=== PATIENT | male | born 1950 | race Caucasian/White ===

== ENCOUNTER 2017-04-29 12:57 | Emergency (ER) | payer MEDICARE, OTHER ==
[2017-04-29 13:11] VITALS: O2SAT 97
--- NOTE | 2017-04-29 13:32 | ERPHSYRPT ---
- History of Present Illness Time Seen by Provider: 04/29/17 13:15 Exam Limitations: clinical condition Patient Subjective Stated Complaint: PT REPORTS SWELLING ET DISCOLORATION TO LEFT THUMB AREA-DENIES PAIN-DENIES INJURY-DENIES NUMBNESS OR TINLGING Triage Nursing Assessment: PT PINK WARM ET [id number] NOTED-PURPLE DISCOLORATION NOTED-RADIAL PULSE REGULAR Physician History: PATIENT WITH A HISTORY OF CORONARY ARTERY DISEASE, AND ARTHRITIS WHILE LIFTING OUT IN HIS YARD YESTERDAY NOTICE PAIN DISCOMFORT BELOW HIS LEF THUMB AND TODAY AT NOON NOTICED SWELLING WITH BRUISING OVER LEFT HAND AROUND THE BASE OF HIS LEFT THUMB. HE DENIES TRAUMA OR INJURY. DENIES BLEEDING FROM HIS GINGIVA OR RECTAL BLEEDING. Occurred: this morning Method of Injury: unknown Quality: other (DENIES PAIN) Severity of Pain-Max: none Severity of Pain-Current: none Extremities Pain Location: hand: left, thumb: left Modifying Factors: Improves With: nothing Associated Symptoms: none Allergies/Adverse Reactions: No Known Drug Allergies Allergy (Unverified 04/29/17 13:11) Home Medications: Aspirin 81 gm Chew [Baby Aspirin 81 mg Chew] 81 mg PO DAILY 04/29/17 [ History] Celecoxib 100 mg [celeBREX 100 MG] 200 mg PO DAILY 04/29/17 [History] Clopidogrel Bisulfate 75 mg [PLAVIX 75 MG Tablet] 75 mg PO DAILY 04/29/17 [History] Losartan Potassium [Cozaar] 25 mg PO DAILY 04/29/17 [History] Meloxicam 7.5 mg PO DAILY 04/29/17 [History] Metoprolol Tartrate 50 mg [Lopressor 50 MG] 50 mg PO DAILY 04/29/17 [ History] Pantoprazole Sodium [Protonix] 40 mg PO DAILY 04/29/17 [History] Hx Tetanus, Diphtheria Vaccination/Date Given: Yes Hx Influenza Vaccination/Date Given: Yes (2016) Hx Pneumococcal Vaccination/Date Given: Yes Immunizations Up to Date: No - Review of Systems Musculoskeletal: Other (BRUISING AND SWELLING AROUND LEFT BASE OF THUMB) Neurological: No Symptoms - Past Medical History Pertinent Past Medical History: Yes Cardiac History: Myocardial Infarction ([place]) Other Medical History: COLON CANCER - Past Surgical History Past Surgical History: Yes Cardiac: Cardiac Stent Gastrointestinal: Colon Resection - Social History Smoking Status: Never smoker Exposure to second hand smoke: No Drug Use: none Patient Lives Alone: No - Nursing Vital Signs Nursing Vital Signs: Initial Vital Signs Temperature 98.0 F 04/29/17 13:08 Pulse Rate 78 04/29/17 13:08 Respiratory Rate 20 04/29/17 13:08 Blood Pressure 128/81 04/29/17 13:08 O2 Sat by Pulse Oximetry 97 04/29/17 13:08 Pain Scale Pain Intensity 0 - Physical Exam General Appearance: no apparent distress Wrist Exam: ecchymosis (OVER THE LEFT HAND THENAR EMINENCE AND DORSUM MID 1ST TO 2ND METACARPALS AND WEB SPACE ), swelling (THERE FULL RANGE OF MOTION ALL DIGITS) SpO2 Interpretation: normal SpO2: 97 Oxygen Delivery: Room Air - Radiology Exams Left Hand X-ray Interpretation: Interpreted by me (SOFT TISSUE SWELLING WITHOUT EVIDENCE OF FRACTURE OR DISLOCATION) Ordered Tests: Active Orders 24 hr Category Date Time Status HAND (MINIMUM 3 VIEWS) Stat Exams 04/29/17 13:29 Taken CBC W DIFF Stat Lab 04/29/17 13:45 Completed PROTIME WITH INR Stat Lab 04/29/17 13:45 Completed Lab/Rad Data: Laboratory Result Diagrams 04/29/17 13:45 Laboratory Results 04/29/17 04/29/17 Range/Units 13:45 13:45 WBC 5.5 (4.0-10.5) K/mm3 RBC 5.56 (4.1-5.6) M/mm3 Hgb 14.7 (12.5-18.0) gm/dl Hct 43.9 (42-50) % MCV 79.0 (78-100) fl MCH 26.4 (26-32) pg MCHC 33.5 (32-36) g/dl RDW 15.0 H (11.5-14.0) % Plt Count 244 (150-450) K/mm3 MPV 9.4 (6-9.5) fl Gran % 59.1 (36.0-66.0) % Lymphocytes % 25.0 (24.0-44.0) % Monocytes % 9.4 (0.0-12.0) % Eosinophils % 6.0 H (0.00-5.0) % Basophils % 0.5 (0.0-0.4) % Basophils # 0.03 (0-0.4) INR 1.00 (0.8-3.0) - Progress Progress Note: 04/29/17 14:40 INR 1.0, HGB-14.7 HCT 43.9 Counseled pt/family regarding: diagnosis, need for follow-up, rad results - Departure Time of Disposition: 15:00 Departure Disposition: Home Clinical Impression: LEFT HAND SWELLING/ECCHYMOSIS Condition: Stable Critical Care Time: No Referrals: DEBORAH TINEO MD [Primary Care Provider] - Additional Instructions: APPLY ICE ABOVE AND BELOW LEFT HAND SWELLING EVERY 4 HOURS, DURATION OF 30 MINUTES FOR 48 HOURS. CONSULT YOUR PRIMARY CARE PHYSICIAN FOR EVALUATION IN 1 WEEK.
[2017-04-29 14:01] LABS: BASOPHIL % 0.5 % (0.0-0.4); Granulocytes % 59.1 % (36.0-66.0); Mean Corpuscular Hemoglobin 26.4 pg (26-32); Mean Platelet Volume 9.4 fl (6-9.5); Monocytes % 9.4 % (0.0-12.0); Platelet Count 244 K/mm3 (150-450); Red Blood Count 5.56 M/mm3 (4.1-5.6); White Blood Count 5.5 K/mm3 (4.0-10.5)
[2017-04-29 14:04] LABS: PROTIME 11.1 SECONDS (8.83-12.87)
[2017-04-29 14:29] VITALS: BP 130/79; PULSE 80
--- NOTE | 2017-04-29 20:56 | XRAY ---
Indication: Bruising and swelling. No known injury. Comparison: December 21, 2015. 3 views of the left hand unchanged again demonstrates ring at the base of the fourth finger and mild degenerative changes of the first metacarpal multangular articulation. No new/acute bony, articular, or soft tissue abnormalities.
== END 2017-04-29 15:10 | disposition home or self-care (01) ==
LOC: ED 12:57
DX: M25.442 Effusion, left hand (principal); R58 Hemorrhage, not elsewhere classified; I25.10 Atherosclerotic heart disease of native coronary artery without angina pectoris; I25.2 Old myocardial infarction; Z79.899 Other long term (current) drug therapy; X50.0XXA Overexertion from strenuous movement or load, initial encounter
CPT/HCPCS: 36415; 73130; 85025; 85610; 99282; 99284

== ENCOUNTER 2019-11-21 15:11 | Emergency (ER) | payer MEDICARE, OTHER ==
[2019-11-21] MEDS ORDERED: MOTRIN 600 MG PO ONE (15:32)
[2019-11-21] MEDS ORDERED: Norco 10/325 MG Tablet PO ONE (15:33)
[2019-11-21] MEDS ORDERED: Norco 10/325 MG Tablet ONE (15:36)
[2019-11-21] MEDS ORDERED: MOTRIN 600 MG ONE (15:36)
--- NOTE | 2019-11-21 15:38 | ERPHSYRPT ---
- History of Present Illness Time Seen by Provider: 11/21/19 15:29 Source: patient Exam Limitations: no limitations Patient Subjective Stated Complaint: Laceration Triage Nursing Assessment: Patient ambulated back to ED and transferred self to bed. Patient A+O X3. Patient's skin pink, warm and dry. Patient complains of laceration to left hand, 2nd digit after using a wench on his side by side to pull a mower out of a ditch and pushed the wrong button causing the wench to smash his finger. Skin flap noted to left hand 2nd digit. Patient complains of constant burning pain 02/05. Physician History: Patient is here with laceration to his left index finger. Just prior to arrival patient was working on his lawnmower. He states that he put his finger underneath a lawnmower and got cut by the blades. His last tetanus shot was 2017. He does have some tenderness. Appears to be a partial amputation of the distal DIP on physical exam. 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 Timing: after injury Modifying factors/associated signs and symptoms: none tried Timing/Duration: today Severity: moderate Allergies/Adverse Reactions: No Known Drug Allergies Allergy (Verified 11/21/19 15:15) Home Medications: Aspirin 81 gm Chew [Baby Aspirin 81 mg Chew] 81 mg PO DAILY 04/29/17 [ History] Metoprolol Tartrate 50 mg [Lopressor 50 MG] 50 mg PO DAILY 04/29/17 [ History] Pantoprazole Sodium [Protonix] 40 mg PO DAILY 04/29/17 [History] Ezetimibe 10 mg [Zetia 10 MG] 1 tab PO DAILY 11/21/19 [History] Pitavastatin Calcium [Livalo] 1 tab PO DAILY 11/21/19 [History] Hx Tetanus, Diphtheria Vaccination/Date Given: Yes (07/08/18) Hx Influenza Vaccination/Date Given: Yes (05/23/2019) Hx Pneumococcal Vaccination/Date Given: Yes (10/15/2019) Immunizations Up to Date: Yes Travel Risk - International Travel Have you traveled outside of the country in past 3 weeks: No Have you or anyone close to you been diagnosed with or: No Do your reside in a community with a known COVID-19 case?: Yes If Yes where:: [place] - Coronavirus Screening Has patient experienced Coronavirus symptoms: No - Review of Systems Constitutional: No Fever, No Chills Eyes: No Symptoms Ears, Nose, & Throat: No Symptoms Respiratory: No Cough, No Dyspnea Cardiac: No Chest Pain, No Edema, No Syncope Abdominal/Gastrointestinal: No Abdominal Pain, No Nausea, No Vomiting, No Diarrhea Genitourinary Symptoms: No Dysuria Musculoskeletal: Other (left index finger injury), No Back Pain, No Neck Pain Skin: No Rash Neurological: No Dizziness, No Focal Weakness, No Sensory Changes Psychological: No Symptoms Endocrine: No Symptoms All Other Systems: Reviewed and Negative - Past Medical History Pertinent Past Medical History: Yes Neurological History: No Pertinent History ENT History: No Pertinent History Cardiac History: High Cholesterol, Hypertension, Myocardial Infarction ([place]) Respiratory History: No Pertinent History Endocrine Medical History: No Pertinent History Musculoskeletal History: No Pertinent History GI Medical History: No Pertinent History History: No Pertinent History Psycho-Social History: No Pertinent History Male Reproductive Disorders: No Pertinent History Other Medical History: COLON CANCER - Past Surgical History Past Surgical History: Yes Neuro Surgical History: No Pertinent History Cardiac: Cardiac Stent Respiratory: No Pertinent History Gastrointestinal: Colon Resection Genitourinary: No Pertinent History Musculoskeletal: No Pertinent History Male Surgical History: No Pertinent History - Social History Smoking Status: Never smoker Exposure to second hand smoke: No Drug Use: none Patient Lives Alone: No - Nursing Vital Signs Nursing Vital Signs: Initial Vital Signs Temperature 98.6 F 11/21/19 15:20 Pulse Rate 69 11/21/19 15:20 Respiratory Rate 18 11/21/19 15:20 Blood Pressure 136/90 11/21/19 15:20 O2 Sat by Pulse Oximetry 98 11/21/19 15:20 Pain Scale Pain Intensity 0 - Physical Exam General Appearance: no apparent distress, alert Eye Exam: PERRL/EOMI, eyes nml inspection Ears, Nose, Throat Exam: normal ENT inspection, TMs normal, pharynx normal, moist mucous membranes Neck Exam: normal inspection, non-tender, supple, full range of motion Respiratory Exam: normal breath sounds, lungs clear, No respiratory distress Cardiovascular Exam: regular rate/rhythm, normal heart sounds, normal peripheral pulses Gastrointestinal/Abdomen Exam: soft, normal bowel sounds, No tenderness, No mass Back Exam: normal inspection, normal range of motion, No CVA tenderness, No vertebral tenderness Extremity Exam: normal inspection, normal range of motion, pelvis stable Neurologic Exam: alert, oriented x 3, cooperative, normal mood/affect, nml cerebellar function, nml station & gait, sensation nml, No motor deficits Skin Exam: normal color, warm, dry, No rash Lymphatic Exam: No adenopathy SpO2 Interpretation: normal SpO2: 98 Comments: 11/21/19 15:41 Distal left index finger injury. Partial amputation proximal to the nailbed. It is across the DIP. The nail is still attached. No actual damage to the nail bed. Still has some mild capillary reflux. Procedures - Laceration/Wound Repair Left Upper Finger Wound Location: Left Wound Length (cm): 2 Wound's Depth, Shape: linear, contused tissue Wound Explored: clean Irrigated: Yes Hibiclens Prep: Yes Anesthesia: digital block, 1% Lidocaine Wound Repaired With: sutures Suture Size/Type: 4-0 Number of Sutures: 3 Layer Closure?: No Sterile Dressing Applied?: Yes Splint Applied?: Yes Ordered Tests: Active Orders 24 hr Category Date Time Status FINGER(S) Stat Exams 11/21/19 15:40 Completed Medication Summary Discontinued Medications Generic Name Dose Route Start Last Admin Trade Name Freq PRN Reason Stop Dose Admin Hydrocodone Bitart/Acetaminophen 1 tab 11/21/19 15:33 11/21/19 15:38 Winter 10/325 Mg Tablet PO 11/21/19 15:34 1 tab STAT ONE Administration Hydrocodone Bitart/Acetaminophen Confirm 11/21/19 15:36 Winter 10/325 Mg Tablet Administered 11/21/19 15:37 Dose 1 tab .ROUTE .STK-MED ONE Ibuprofen 600 mg 11/21/19 15:32 11/21/19 15:38 Motrin 600 Mg PO 11/21/19 15:33 600 mg STAT ONE Administration Ibuprofen Confirm 11/21/19 15:36 Motrin 600 Mg Administered 11/21/19 15:37 Dose 600 mg .ROUTE .STK-MED ONE - Progress Progress: improved Progress Note: 11/21/19 15:42 Digital block performed. Winter for pain control. The distal finger was loosely attached to the best of my ability to the rest of the finger. There is still a high likelihood that he will lose this finger. As it is almost a complete amputation. Still some minimal blood flow and patient does have sensation to the injury. We will discuss with on-call orthopedic surgery and most likely have patient follow-up soon as possible. 11/21/19 17:03 I did discuss over the phone with on-call orthopedic surgery, Dr. Li. He stated patient could follow-up in 24 to 48 hours. Otherwise, he could call him sooner if there is any emergencies. Patient states his understanding. Patient also has his own orthopedic surgeon. I did attempt to contact Dr. Acacia Morales , his orthopedic surgeon. However, there is no response to the phone call at 5 PM on Sunday night. Counseled pt/family regarding: need for follow-up, rad results - Departure Departure Disposition: Home Clinical Impression: Finger laceration, Fracture of distal phalanx of finger, Fracture of middle phalanx of finger, Open fracture Condition: Stable Critical Care Time: No Referrals: DEBORAH TINEO MD [Primary Care Provider] - Instructions: Finger Fracture (DC) Additional Instructions: Follow up with Dr. Li if you have any issues this weekend, otherwise see him Sunday morning for follow up. [phone] You are welcome to follow up with your own hand surgeon if you would like and can see them in the next 24-48 hours . Return here for new or changing symptoms. Prescriptions: Clindamycin HCl 150 mg [Cleocin 150 mg Capsule] 2 cap PO QID #56 capsule
[2019-11-21 15:45] VITALS: BP 124/78; PULSE 76
[2019-11-21 15:47] VITALS: O2SAT 98
--- NOTE | 2019-11-21 16:12 | XRAY ---
Indication: Crush injury. Comparison: Left hand April 29, 2017. 3 view left 2nd finger demonstrates new mildly displaced/angulated distal phalanx fracture near the base, nondisplaced comminuted middle phalanx fracture, and diffuse soft tissue swelling. Incidental progressive worsening advanced degenerative changes base 1st metacarpal.
== END 2019-11-21 17:09 | disposition home or self-care (01) ==
LOC: ED 15:11
DX: S61.211A Laceration without foreign body of left index finger without damage to nail, initial encounter (principal); R20.8 Other disturbances of skin sensation; S62.633B Displaced fracture of distal phalanx of left middle finger, initial encounter for open fracture; W23.1XXA Caught, crushed, jammed, or pinched between stationary objects, initial encounter; Y93.89 Activity, other specified; Y92.89 Other specified places as the place of occurrence of the external cause; I25.2 Old myocardial infarction; Z85.038 Personal history of other malignant neoplasm of large intestine; Z90.49 Acquired absence of other specified parts of digestive tract; I10 Essential (primary) hypertension; E78.00 Pure hypercholesterolemia, unspecified; Z79.899 Other long term (current) drug therapy
CPT/HCPCS: 73140; 99283; A9270-GY

== ENCOUNTER 2021-07-30 11:02 | Emergency (ER) | payer MEDICARE, OTHER ==
[2021-07-30 11:12] VITALS: BP 140/72; PULSE 69; O2SAT 99
--- NOTE | 2021-07-30 12:11 | ERPHSYRPT ---
- History of Present Illness Time Seen by Provider: 07/30/21 11:51 Source: patient Exam Limitations: no limitations Patient Subjective Stated Complaint: Pt dropped a metal container on his left great toe two days ago Triage Nursing Assessment: Pt brought self to the ER, vitals wnl, rates pain as 1/10, large blood blister proximal to the the nail of the large toe, nail is white, denies any other injuries Physician History: 70-year-old male presented in the ER with chief complaint of left big toe injury 3 days ago after he accidentally dropped a heavy metal and has noticed a blood- filled blister proximal to the nail with associated redness of toe. Minimal pain with ambulation/palpation. Up-to-date with tetanus. Patient wants blister to be lanced. Method of Injury: direct blow Occurred: days ago (3) Quality: aching Severity of Pain-Max: moderate Severity of Pain-Current: mild Lower Extremities Pain: 1st toe: left Modifying Factors: Improves With: immobilization. Worsens With: movement Associated Symptoms: none Allergies/Adverse Reactions: No Known Drug Allergies Allergy (Verified 07/30/21 11:12) Home Medications: Aspirin 81 gm Chew [Baby Aspirin 81 mg Chew] 81 mg PO DAILY 04/29/17 [History] Metoprolol Tartrate 50 mg [Lopressor 50 MG] 50 mg PO DAILY 04/29/17 [History] Pantoprazole Sodium [Protonix] 40 mg PO DAILY 04/29/17 [History] Ezetimibe 10 mg [Zetia 10 MG] 1 tab PO DAILY 11/21/19 [History] Pitavastatin Calcium [Livalo] 1 tab PO DAILY 11/21/19 [History] Hx Tetanus, Diphtheria Vaccination/Date Given: Yes (07/08/18) Hx Influenza Vaccination/Date Given: Yes (05/23/2019) Hx Pneumococcal Vaccination/Date Given: Yes (10/15/2019) Travel Risk - International Travel Have you traveled outside of the country in past 3 weeks: No - Coronavirus Screening Are you exhibiting any of the following symptoms?: No Close contact with a COVID-19 positive Pt in past 14-21 Days: No - Vaccine Status Have you recieved a Covid-19 vaccination: Yes 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 - Vaccination Dates Date of 2cond Vaccination (if applicable): 10/2020 - Review of Systems Constitutional: No Symptoms Respiratory: No Symptoms Cardiac: No Symptoms Abdominal/Gastrointestinal: No Symptoms Musculoskeletal: Injury Skin: Skin Lesions Neurological: No Symptoms Psychological: No Symptoms Hematologic/Lymphatic: No Symptoms Immunological/Allergic: No Symptoms - Past Medical History Pertinent Past Medical History: Yes Neurological History: No Pertinent History ENT History: No Pertinent History Cardiac History: High Cholesterol, Hypertension, Myocardial Infarction ([place]) Respiratory History: No Pertinent History Endocrine Medical History: No Pertinent History Musculoskeletal History: No Pertinent History GI Medical History: No Pertinent History History: No Pertinent History Psycho-Social History: No Pertinent History Male Reproductive Disorders: No Pertinent History Other Medical History: COLON CANCER - Past Surgical History Past Surgical History: Yes Neuro Surgical History: No Pertinent History Cardiac: Cardiac Stent Respiratory: No Pertinent History Gastrointestinal: Colon Resection Genitourinary: No Pertinent History Musculoskeletal: No Pertinent History Male Surgical History: No Pertinent History - Social History Smoking Status: Never smoker Exposure to second hand smoke: No Drug Use: none Patient Lives Alone: No - Nursing Vital Signs Nursing Vital Signs: Initial Vital Signs Temperature 97.0 F 07/30/21 11:06 Pulse Rate 69 07/30/21 11:06 Blood Pressure 140/72 07/30/21 11:06 O2 Sat by Pulse Oximetry 99 07/30/21 11:06 Pain Scale Pain Intensity 1 - Physical Exam General Appearance: no apparent distress, alert Eyes, Ears, Nose, Throat Exam: normal ENT inspection Neck Exam: normal inspection, supple, full range of motion Cardiovascular/Respiratory Exam: normal breath sounds, regular rate/rhythm Back Exam: normal inspection, normal range of motion Foot Exam: right foot: non-tender, normal inspection, no evidence of injury, left foot: bone tenderness (Big toe distal phalanx), nail injury (Big toe), pain, soft tissue tenderness, swelling (Dark black felt blister proximal to the nail), other (Mobile big toe nail), bilateral foot: normal range of motion Neuro/Tendon Exam: normal sensation, normal motor functions Mental Status Exam: alert, oriented x 3, cooperative Skin Exam: normal color SpO2 Interpretation: normal SpO2: 99 O2 Delivery: Room Air Ordered Tests: Active Orders 24 hr Category Date Time Status TOE(S) (MIN 2 VIEWS) Stat Exams 07/30/21 00:00 Taken - Progress Progress: improved Progress Note: 07/30/21 12:16 With needle blister is lanced. Dressing applied. X-rays reviewed by me some questionable finding of distal phalanx fracture. Patient is advised to follow- up outpatient with podiatry. Counseled pt/family regarding: diagnosis, need for follow-up, rad results - Departure Departure Disposition: Home Clinical Impression: Contusion of toe of left foot Qualifiers: Encounter type: initial encounter Toe: great toe Damage to nail status: with damage Qualified Code(s): S90.212A - Contusion of left great toe with damage to nail, initial encounter Condition: Stable Critical Care Time: No Referrals: DEBORAH TINEO MD [Primary Care Provider] - Follow up/PCP as directed UZAIR SALGADO DPM [ACTIVE STAFF] - Follow up/PCP as directed (In 2 days for reevaluation) Instructions: Toe Injury (DC) Additional Instructions: Weightbearing as tolerated. Follow-up with primary care/podiatry for reevaluation. Keep it clean. To ER for any worsening pain, swelling/redness/fever chills etc.
--- NOTE | 2021-07-30 18:36 | XRAY ---
Indication: Great toe pain following injury. Comparison: None 3 view left great toe demonstrates nondisplaced tuft fracture with soft tissue swelling. No other bony, articular, or soft tissue abnormalities.
== END 2021-07-30 12:20 | disposition home or self-care (01) ==
LOC: ED 11:02
DX: S90.212A Contusion of left great toe with damage to nail, initial encounter (principal); W20.8XXA Other cause of strike by thrown, projected or falling object, initial encounter; E78.5 Hyperlipidemia, unspecified; I10 Essential (primary) hypertension; Z79.899 Other long term (current) drug therapy
CPT/HCPCS: 73660; 99283

== ENCOUNTER 2024-06-19 20:18 | Emergency (ER) | payer MEDICARE, OTHER ==
--- NOTE | 2024-06-19 20:51 | ERPHSYRPT ---
- History of Present Illness Time Seen by Provider: 06/19/24 20:30 Historian: patient Exam Limitations: no limitations Physician History: 73-year-old male with history of hypertension, hyperlipidemia, coronary artery disease with stenting, colon cancer status post resection and anastomosis/chemotherapy 20 years ago presented in the ER with sudden onset left lower quadrant/flank pain moderate to severe sharp with some radiation to the left groin with associated nausea and 1 episode of nonprojectile, nonbilious vomiting. Patient denies any urinary complaints. Patient reports pain started to improve on its own after an hour and currently having minimal pain. Does report having history of kidney stones. No fever or chills reported. Patient reports that he was having off-and-on pain for last week in the same area but not this severe. Allergies/Adverse Reactions: [id number] Reductase Inhibitor Adverse Reaction (Verified 06/19/24 20:31) Home Medications: Aspirin 81 gm Chew [Baby Aspirin 81 mg Chew] 81 mg PO DAILY 04/29/17 [History] Metoprolol Tartrate 50 mg [Lopressor 50 MG] 50 mg PO DAILY 04/29/17 [History] Pantoprazole Sodium [Protonix] 40 mg PO DAILY 04/29/17 [History] Ezetimibe 10 mg [Zetia 10 MG] 1 tab PO DAILY 11/21/19 [History] Pitavastatin Calcium [Livalo] 1 tab PO DAILY 11/21/19 [History] [place]-3/Dha/Epa/Fish Oil [Fish Oil 1,000 mg Softgel] 1 each PO DAILY 06/19/24 [History] Hx Tetanus, Diphtheria Vaccination/Date Given: Yes (07/08/18) Hx Influenza Vaccination/Date Given: Yes (05/23/2019) Hx Pneumococcal Vaccination/Date Given: Yes (10/15/2019) - Review of Systems Constitutional: No Symptoms Ears, Nose, & Throat: No Symptoms Respiratory: No Symptoms Cardiac: No Symptoms Abdominal/Gastrointestinal: Abdominal Pain, Nausea, Vomiting Genitourinary Symptoms: Flank Pain Musculoskeletal: No Symptoms Skin: No Symptoms Neurological: No Symptoms Endocrine: No Symptoms Hematologic/Lymphatic: No Symptoms Immunological/Allergic: No Symptoms - Past Medical History Pertinent Past Medical History: Yes Neurological History: No Pertinent History ENT History: No Pertinent History Cardiac History: High Cholesterol, Hypertension, Myocardial Infarction ([place]) Respiratory History: No Pertinent History Endocrine Medical History: No Pertinent History Musculoskeletal History: No Pertinent History GI Medical History: No Pertinent History History: No Pertinent History Psycho-Social History: No Pertinent History Male Reproductive Disorders: No Pertinent History Other Medical History: COLON CANCER - Past Surgical History Past Surgical History: Yes Neuro Surgical History: No Pertinent History Cardiac: Cardiac Stent Respiratory: No Pertinent History Gastrointestinal: Colon Resection Genitourinary: No Pertinent History Musculoskeletal: No Pertinent History Male Surgical History: No Pertinent History - Social History Smoking Status: Never smoker Exposure to second hand smoke: No Drug Use: none Patient Lives Alone: No - Nursing Vital Signs Nursing Vital Signs: Initial Vital Signs Temperature 97.6 F 06/19/24 20:25 Pulse Rate 67 06/19/24 20:25 Respiratory Rate 18 06/19/24 20:25 Blood Pressure 147/78 06/19/24 20:25 O2 Sat by Pulse Oximetry 97 06/19/24 20:25 Pain Scale Pain Intensity 2 - Physical Exam General Appearance: no apparent distress, alert Eye Exam: PERRL/EOMI Ears, Nose, Throat Exam: normal ENT inspection Neck Exam: normal inspection, full range of motion Respiratory Exam: normal breath sounds, lungs clear Cardiovascular Exam: regular rate/rhythm, normal heart sounds Gastrointestinal/Abdomen Exam: soft, normal bowel sounds, tenderness (Tenderness left lower quadrant) Back Exam: No CVA tenderness Extremity Exam: normal inspection, normal range of motion Neurologic Exam: alert, oriented x 3, 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, 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 Skin Exam: normal color SpO2 Interpretation: normal SpO2: 96 O2 Delivery: Room Air Ordered Tests: Active Orders 24 hr Category Date Time Status ABDOMEN AND PELVIS W/0 CONTRAS [CT] Stat Exams 06/19/24 21:01 Taken CBC W DIFF Stat Lab 06/19/24 20:45 Completed CMP Stat Lab 06/19/24 20:45 Completed CULTURE,URINE Stat Lab 06/19/24 20:55 Received LIPASE Stat Lab 06/19/24 20:45 Completed UA W/RFX UR CULTURE Stat Lab 06/19/24 20:55 Completed Medication Summary Generic Name Dose Route Start Last Admin Trade Name Freq PRN Reason Stop Dose Admin Sodium Chloride 1,000 mls @ 125 mls/hr 06/19/24 22:45 06/19/24 22:47 Sodium Chloride 0.9% 1000 Ml IV 07/19/24 22:44 125 mls/hr .Q8H KRYS Administration Tamsulosin HCl 0.4 mg 06/20/24 22:39 06/19/24 22:42 Tamsulosin Hcl 0.4 Mg Cap PO 06/20/24 22:40 0.4 mg STAT ONE Administration Discontinued Medications Generic Name Dose Route Start Last Admin Trade Name Evelio PRN Reason Stop Dose Admin Ketorolac Tromethamine 30 mg 06/19/24 22:39 06/19/24 22:43 Ketorolac Tromethamine 30 Mg/Ml Inj IV 06/19/24 22:40 Not Given STAT ONE Ketorolac Tromethamine Confirm 06/19/24 22:41 Ketorolac Tromethamine 30 Mg/Ml Inj Administered 06/19/24 22:42 Dose 30 mg .ROUTE .STK-MED ONE Morphine Sulfate 4 mg 06/19/24 22:44 06/19/24 22:49 Morphine Sulfate 4 Mg/Ml Injection IV 06/19/24 22:45 4 mg STAT ONE Administration Morphine Sulfate Confirm 06/19/24 22:46 Morphine Sulfate 4 Mg/Ml Injection Administered 06/19/24 22:47 Dose 4 mg .ROUTE .STK-MED ONE Ondansetron HCl 4 mg 06/19/24 22:44 06/19/24 22:49 Ondansetron Hcl 4 Mg/2 Ml Vial IV 06/19/24 22:45 4 mg STAT ONE Administration Ondansetron HCl Confirm 06/19/24 22:46 Ondansetron Hcl 4 Mg/2 Ml Vial Administered 06/19/24 22:47 Dose 4 mg .ROUTE .STK-MED ONE Tamsulosin HCl Confirm 06/19/24 22:41 Tamsulosin Hcl 0.4 Mg Cap Administered 06/19/24 22:42 Dose 0.4 mg .ROUTE .STK-MED ONE Lab/Rad Data: Laboratory Result Diagrams 06/19/24 20:45 06/19/24 20:45 Laboratory Results 06/19/24 06/19/24 06/19/24 Range/Units 20:55 20:45 20:45 WBC 5.3 (4.23-9.07) x10^3/uL RBC 5.18 (4.63-6.08) x10^6/uL Hgb 13.4 L (13.7-17.5) g/dL Hct 41.3 (40.1-51.0) % MCV 79.7 (79.0-92.2) fL MCH 25.9 (25.7-32.2) pg MCHC 32.4 (32.3-36.5) g/dL RDW 14.1 (11.6-14.4) % Plt Count 187 (163-337) x10^3/uL MPV 9.1 L (9.4-12.4) fL Gran % 55.4 (34.0-67.9) % Immature Gran % (Auto) 0.2 (0.001-0.429) % Nucleat RBC Rel Count 0.0 (0.00-0.2) % Eos # (Auto) 0.26 (0.04-0.54) x10^3/uL Immature Gran # (Auto) 0.01 (0.001-0.031) x10^3u/L Absolute Lymphs (auto) 1.50 (1.32-3.57) x10^3/uL Absolute Monos (auto) 0.57 (0.30-0.82) x10^3/uL Absolute Nucleated RBC 0.00 (0.00-0.012) x10^3u/L Lymphocytes % 28.1 (21.8-53.1) % Monocytes % 10.7 (5.3-12.2) % Eosinophils % 4.9 (0.8-7.0) % Basophils % 0.7 (0.2-1.2) % Absolute Granulocytes 2.96 (1.78-5.38) x10^3/uL Basophils # 0.04 (0.01-0.08) x10^3/uL Sodium 140 (135-145) mmol/L Potassium 4.0 (3.5-5.1) mmol/L Chloride 106 (98-107) mmol/L Carbon Dioxide 24 (22-30) mmol/L Anion Gap 13.6 (5-15) MEQ/L BUN 22 H (9-20) mg/dL Creatinine 1.74 H (0.66-1.25) mg/dL Estimated GFR 40.6 ML/MIN Glucose 109 H (74-106) mg/dL Calcium 9.4 (8.4-10.2) mg/dL Total Bilirubin 0.70 (0.2-1.3) mg/dL AST 33 (17-59) U/L ALT 25 (0-50) U/L Alkaline Phosphatase 66 (38-126) U/L Serum Total Protein 6.9 (6.3-8.2) g/dL Albumin 4.2 (3.5-5.0) g/dL Lipase 158 (23-300) U/L Urine Color Yellow (Yellow) Urine Appearance Cloudy A (Clear) Urine pH 5.5 (4.6-8.0) Ur Specific [place] 1.020 (1.005-1.030) Urine Protein Trace A (Negative) Urine Glucose (UA) Negative (Negative) mg/dL Urine Ketones Trace A (Negative) Urine Blood Large A (Negative) Urine Nitrite Negative (Negative) Urine Bilirubin Negative (Negative) Urine Urobilinogen 1.0 A (0.2) mg/dL Ur Leukocyte Esterase Negative (Negative) U Hyaline Cast (Auto) NONE SEEN (0-2) /LPF Urine Microscopic RBC >100 A (0-5) /HPF Urine Microscopic WBC 0-2 (0-5) /HPF Ur Epithelial Cells None Seen (None Seen) /HPF Urine Bacteria None Seen (None Seen) /HPF Urine Culture Reflexed YES (NO) - Progress Progress: improved Progress Note: 06/19/24 23:20 73-year-old is evaluated in the ER for left flank pain with nausea and vomiting x 1. Is given fluids and symptomatic treatment, on reevaluation he is feeling much better. Workup showed normal white count, chemistries with minimal elevation of creatinine to 1.7 with a baseline of 1.5. No UTI. CT abdomen pelvis without contrast per preliminary report has 5-6 mm left ureteral stone almost 3 cm from UVJ. He is given Flomax. I have recommended transfer to facility with urology services but patient does not want to go and would like to try pain medication and Flomax and go home. Discussed with patient in detail about signs symptoms of worsening needing return to ER which she seems understanding. Otherwise outpatient follow-up with urology. Counseled pt/family regarding: lab results, diagnosis, rad results Medical Desision Making - Independent Historian Additional History obtained from: Spouse - Diagnostic Testing Diagnostic test were ordered, analyzed, and reviewed by me: Yes Radiological Interpretation: Reviewed by me, Teleradiologist Report - Risk of complications The pt has a mod risk of morbidity or mortality based on: Need for prescription drug management - Departure Departure Disposition: Home Clinical Impression: Ureteral calculus, left Condition: Stable Critical Care Time: No Referrals: DEBORAH TINEO MD [Primary Care Provider] - Follow up with PCP 1 day BAL SARABIA [COURTESY STAFF] - Follow up/PCP as directed (Call for appointment) Instructions: Kidney Stone, Adult ED Additional Instructions: Take pain medications as needed. Drink plenty of fluids. Follow-up with urology for reevaluation in 1 to 2 days. Return to ER for intractable pain/vomiting/difficulty to urination or if develop fever chills etc. Prescriptions: Hydrocodone/Acetaminophen [Hydrocodone-Acetamin 7.5-325] 1 each PO Q6HPRN PRN 3 Days #12 tablet MDD 4 PRN Reason: Pain Tamsulosin HCl 0.4 mg [Flomax 0.4 MG] 0.4 mg PO DAILY #30 cap
[2024-06-19 20:55] VITALS: TEMP 97.6
[2024-06-19 20:57] LABS: Absolute Neutrophil Ct (ANC) 2.96 x10^3/uL (1.78-5.38); BASOPHIL % 0.7 % (0.2-1.2); Basophil (Absolute #) 0.04 x10^3/uL (0.01-0.08); Eosinophil % 4.9 % (0.8-7.0); Eosinophil (Absolute #) 0.26 x10^3/uL (0.04-0.54); Hematocrit 41.3 % (40.1-51.0); Hemoglobin 13.4 g/dL (13.7-17.5); IMMATURE GRAN # 0.01 x10^3u/L (0.001-0.031); IMMATURE GRAN % 0.2 % (0.001-0.429); Lymphocytes % 28.1 % (21.8-53.1); Mean Cell Volume 79.7 fL (79.0-92.2); Mean Corpuscular Hemoglobin 25.9 pg (25.7-32.2); Mean Corpuscular Hgb Concent. 32.4 g/dL (32.3-36.5); Mean Platelet Volume 9.1 fL (9.4-12.4); Monocyte (Absolute #) 0.57 x10^3/uL (0.30-0.82); Monocytes % 10.7 % (5.3-12.2); Neutrophil % 55.4 % (34.0-67.9); Platelet Count 187 x10^3/uL (163-337); Red Blood Count 5.18 x10^6/uL (4.63-6.08); Red Cell Distribution Width 14.1 % (11.6-14.4); White Blood Count 5.3 x10^3/uL (4.23-9.07)
[2024-06-19 21:04] LABS: Appearance Cloudy (Clear); Bacteria None Seen /HPF (None Seen); Bilirubin Negative (Negative); Blood Large (Negative); Epithelial Cells None Seen /HPF (None Seen); Glucose, Urine Negative (Negative); Hyaline Casts NONE SEEN /LPF (0-2); Ketones Trace (Negative); Leukocyte Esterase Negative (Negative); Nitrite Negative (Negative); Ph 5.5 (4.6-8.0); Protein,Urine Dip Trace (Negative); RBC >100 /HPF (0-5); WBC 0-2 /HPF (0-5)
[2024-06-19 21:07] LABS: ALBUMIN 4.2 g/dL (3.5-5.0); ANION GAP 13.6 MEQ/L (5-15); BILIRUBIN,TOTAL 0.7 mg/dL (0.2-1.3); Calcium 9.4 mg/dL (8.4-10.2); Creatinine 1 1.74 mg/dL (0.66-1.25); EST GLOMERULAR FILTRATION RATE 40.6 ML/MIN; Total Protein 6.9 g/dL (6.3-8.2)
[2024-06-19] MEDS ORDERED: TORAdol 30 mg Injection ONE (22:41)
[2024-06-19] MEDS ORDERED: Flomax 0.4 MG ONE (22:41)
[2024-06-19] MEDS: Flomax 0.4 MG PO ONE (22:42)
[2024-06-19] MEDS: TORAdol 30 mg Injection IV ONE (22:43)
[2024-06-19] MEDS ORDERED: Zofran 4 MG/2 ML VIAL ONE (22:46)
[2024-06-19] MEDS ORDERED: MORPHINE SULFATE 4 MG INJ ONE (22:46)
[2024-06-19] MEDS ORDERED: Sodium Chloride 0.9% 1000 ML 1,000 ML ONE (22:46)
[2024-06-19] MEDS: Sodium Chloride 0.9% 1000 ML 1,000 ML IV SCH (22:47)
[2024-06-19] MEDS: MORPHINE SULFATE 4 MG INJ IV ONE (22:49)
[2024-06-19] MEDS: Zofran 4 MG/2 ML VIAL IV ONE (22:49)
[2024-06-19] MEDS ORDERED: NORCO 5/325 MG ONE (23:36)
[2024-06-19] MEDS: NORCO 5/325 MG PO ONE (23:36)
[2024-06-19 23:59] VITALS: BP 110/56; PULSE 64; RESP 16; O2SAT 95
--- NOTE | 2024-06-20 09:19 | XRAY ---
Indication: Left lower quadrant pain. Multiple contiguous axial images obtained through the abdomen and pelvis without contrast using renal stone protocol. Comparison: None Lung bases hyperinflated with minimal bibasilar subsegmental atelectasis/scarring and tiny left lower lobe calcified granuloma. Heart not enlarged. There is 5-6 mm distal left ureter calculus approximately 3-4 cm proximal to UVJ. Proximal left ureter minimally prominent along with minimal hydronephrosis consistent with partial obstructive uropathy. No free fluid/air. Right kidney demonstrates at least 3 nonobstructing punctate calculi and 1.7 cm upper renal cyst. Left mid kidney demonstrates 1 cm round dense exophytic lesion, not simple cyst. Stomach is distended with food/fluid. Noncontrasted stomach and bowel loops appear nonobstructed with normal appendix. Remaining liver, gallbladder, pancreas, spleen, adrenal glands, kidneys, ureters, and bladder are unremarkable for noncontrast exam. Mild scattered aortoiliac calcifications without AAA. Osseous structures intact with osteopenia and mild/moderate degenerative changes are spine greatest L2-L5 levels. Impression: 1. 5-6 mm distal left ureteral calculus producing partial obstruction. Additional nonobstructing right renal punctate calculi. 2. 1 cm left mid renal dense exophytic lesion. Initial renal sonogram may help differentiate solid versus cystic. Incidental 1.7 cm right renal cyst. 2. Chronic findings including atelectasis/scarring, left base calcified granuloma, arteriosclerotic disease, and chronic bony findings.
== END 2024-06-19 23:59 | disposition home or self-care (01) ==
LOC: ED 20:18
DX: N20.1 Calculus of ureter (principal); R10.32 Left lower quadrant pain; R11.2 Nausea with vomiting, unspecified; E78.5 Hyperlipidemia, unspecified; I10 Essential (primary) hypertension; Z79.891 Long term (current) use of opiate analgesic; Z79.899 Other long term (current) drug therapy; Z87.442 Personal history of urinary calculi
CPT/HCPCS: 36415; 74176; 80053; 81001; 83690; 85025; 87086; 96374; 99284; J1885; J2270; J2405; A9270-GY